=== PATIENT | female | born 1960 | race Caucasian/White ===

== ENCOUNTER 2017-10-10 15:11 | Emergency (ER) | payer SELFPAY, MEDICAID | END 2017-10-10 23:40 | disposition left against medical advice (07) | LOC: E/R 15:11 | DX: Z53.21 Procedure and treatment not carried out due to patient leaving prior to being seen by health care provider (principal) ==

== ENCOUNTER 2019-02-23 07:38 | Day surgery (SDC) | payer BC ==
[2019-02-23] MEDS ORDERED: DICLOFENAC 0.1% 2.5 ML OPH (PRE-OP) OPER (08:30)
[2019-02-23] MEDS ORDERED: ACETAMINOPHEN 325 MG TAB (POST-OP) PO (08:30)
[2019-02-23] MEDS: CIPROFLOXACIN 0.3% 2.5 ML OPH (PRE-OP) OPER ×2 (08:37→09:05)
[2019-02-23] MEDS: PHENYLephrine 2.5% 15 ML OPH (PRE-OP) OPER ×2 (08:37→09:05)
[2019-02-23] MEDS: TETRACAINE 0.5% 4 ML OPH (PRE-OP) OPER ×2 (08:38→09:06)
[2019-02-23] MEDS: DICLOFENAC 0.1% 2.5 ML OPH (PRE-OP) OPER ×2 (08:38→09:06)
[2019-02-23] MEDS: TROPICAMIDE 1% 15 ML OPH (PRE OP) OPER ×2 (08:38→09:05)
[2019-02-23] MEDS: CYCLOPENTOLATE 1% 2 ML OPH OPER (08:38)
[2019-02-23] MEDS ORDERED: CARBACHOL 0.01% 1.5 ML OPH INJ (09:25)
[2019-02-23] MEDS ORDERED: TOBRAMYCIN/DEXAMETH 3.5 GM OPH OINT (09:25)
[2019-02-23] MEDS ORDERED: LIDOCAINE 4% (MPF) 5 ML INJ (09:25)
[2019-02-23] MEDS ORDERED: MIDAZOLAM 1 MG/ML 2 ML INJ (09:38)
[2019-02-23] MEDS: TETRACAINE 0.5% 4 ML OPH (10:16)
[2019-02-23] MEDS: LIDOCAINE 4% (MPF) 5 ML INJ INJ (10:16)
[2019-02-23] MEDS: NA HYALURONATE/CHONDROITIN 0.5 ML SYG (10:16)
[2019-02-23] MEDS: TOBRAMYCIN/DEXAMETH 3.5 GM OPH OINT LEFT EYE (10:16)
[2019-02-23] MEDS ORDERED: ONDANSETRON 4 MG INJ IV (10:30)
[2019-02-23] MEDS ORDERED: OXYCODONE/ACETAMINOPHEN (5/325) TAB PO (10:30)
== END 2019-02-23 11:31 | disposition home or self-care (01) ==
LOC: SDS 07:38
DX: H26.8 Other specified cataract (principal); E78.5 Hyperlipidemia, unspecified; E11.9 Type 2 diabetes mellitus without complications; Z79.84 Long term (current) use of oral hypoglycemic drugs; Z79.4 Long term (current) use of insulin
CPT/HCPCS: 66984; 71045; 82962